=== PATIENT | female | born 1950 | race Caucasian/White ===

== ENCOUNTER 2021-09-25 17:36 | Emergency (ER) | payer MEDICARE, OTHER, SELFPAY ==
[2021-09-25 17:50] VITALS: BP 168/86; PULSE 95; RESP 18; TEMP 36.8; O2SAT 98; BMI 19.8
--- NOTE | 2021-09-25 18:00 | DI.CT.S_ITS ---
PROCEDURE: CT HEAD/BRAIN WO CON INDICATIONS: vision changes x 5 days/ stroke r/o TECHNIQUE: Noncontrast 4.5 mm thick angled axial sections acquired from the foramen magnum to the vertex, with coronal and sagittal reformats. For radiation dose reduction, the following was used: automated exposure control, adjustment of mA and/or kV according to patient size. COMPARISON: None. FINDINGS: Image quality: Excellent. CSF spaces: Basal cisterns are patent. No extra-axial fluid collections. The ventricles are symmetric in size and shape. Brain: No intracranial bleeds or masses. There is cerebral volume loss for age, with resultant ventricular and sulcal prominence. There are periventricular and deep white matter chronic small vessel ischemic changes. There is intracranial internal carotid artery atherosclerosis. Skull and face: Calvarium and visualized facial bones appear intact, without suspicious lesions. Sinuses: Air-fluid levels in maxillary sinuses bilaterally, consistent with sinusitis. Mastoids are clear. IMPRESSION: 1. No acute intracranial abnormalities. 2. Bilateral maxillary sinusitis. Dictated by: Deven Montilla M.D. on 09/25/2021 at 18:22 Approved by: Deven Montilla M.D. on 09/25/2021 at 18:23
--- NOTE | 2021-09-25 19:19 | PC.NURSE ---
Pt and report that they do not wish to wait any longer in the [place]. They are hungry and would like to have dinner. Advised that it will be some time until pt is seen by MD. Pt already had a head CT as advised by the opthomologist. Pt and her state that they will come back later if sx get worse, however pt has an appt with a retinal specialist in [place] tomorrow and another specialist thereafter. Long conversation was had with pt and regarding leaving [facility] and they feel comfortable with the decision to not be seen by MD at this time.
--- NOTE | 2021-09-26 06:33 | ED.EYEPROB ---
HPI - Eye Problem General Chief complaint: Eye Problems Stated complaint: Possible Stroke Source: patient and family Mode of arrival: Ambulatory Related Data Allergies Allergy/AdvReac Type Severity Reaction Status Date / Time Sulfa (Sulfonamide Allergy Intermediate Rash Verified 09/25/21 17:55 Antibiotics) Patient History Social History Smoking Status: Never smoker Smoking Status: Never smoker alcohol intake frequency: 0-2 drinks per day Substance Use Type: does not use Exam Initial Vital Signs Initial Vital Signs: Vital Signs Temperature 98.3 F 09/25/21 17:50 Pulse Rate 95 H 09/25/21 17:50 Respiratory Rate 18 09/25/21 17:50 Blood Pressure 168/86 H 09/25/21 17:50 Pulse Oximetry 98 09/25/21 17:50 Discharge Plan Departure Patient Disposition: Left Without Being Seen Clinical Impression: Patient left before evaluation by physician
== END 2021-09-25 19:23 | disposition left against medical advice (07) ==
PROVIDERS: Emergency Provider Emergency Medicine
DX: H53.9 Unspecified visual disturbance (principal); Z53.21 Procedure and treatment not carried out due to patient leaving prior to being seen by health care provider; J32.0 Chronic maxillary sinusitis
CPT/HCPCS: 70450; 99283